=== PATIENT | female | born 1965 | race American Indian/Alaskan Native ===

== ENCOUNTER 2020-11-24 11:27 | Emergency (ER) | payer SELFPAY ==
[2020-11-24 11:50] VITALS: BP 121/71
--- NOTE | 2020-11-24 12:05 | Event Note ---
ED Screening Note Date of service: 11/24/20 Time: 12:03 ED Screening Note: 55-year-old -Chinese female presents to the emergency room for right thumb injury as she was getting into her bed yesterday. Patient reports she took Tylenol yesterday but has not taken anything today. Denies any past medical history reports she currently takes no medications on a daily basis. This initial assessment/diagnostic orders/clinical plan/treatment(s) is/are subject to change based on patients health status, clinical progression and re- assessment by fellow clinical providers in the ED. Further treatment and workup at subsequent clinical providers discretion. Patient/guardian urged not to elope from the ED as their condition may be serious if not clinically assessed and managed. Initial orders include:
--- NOTE | 2020-11-24 12:38 | XRay Report ---
RIGHT THUMB 3 VIEW(S) INDICATION / CLINICAL INFORMATION: Concern for right thumb injury COMPARISON: None available. FINDINGS: BONES / JOINT(S): No acute fracture or subluxation. 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 SOFT TISSUES: Mild soft tissue swelling around the thumb IP joint. ADDITIONAL FINDINGS: None. Signer Name: Lemuel Molina MD Signed: 11/24/2020 12:34 PM Workstation Name: [id number]
--- NOTE | 2020-11-24 13:04 | Emergency Department Report ---
ED Upper Extremity Inj HPI - General Chief Complaint: Extremity Injury, Upper Stated Complaint: RT THUMB INJURY Time Seen by Provider: 11/24/20 12:57 Source: patient Mode of arrival: Ambulatory Limitations: No Limitations - History of Present Illness Initial Comments: 55-year-old -Marshallese female presents to the emergency room for right thumb injury trying to get into bed yesterday. Patient states bending her thumb makes the pain worst. She denies any direct blow denies any falls. States she took Tylenol yesterday. Currently takes no medications on a daily basis MD Complaint: Injury to:: right, finger (thumb) Onset/Timin - Related Data Allergies Allergy/AdvReac Type Severity Reaction Status Date / Time sulfamethoxazole Allergy Rash Verified 11/24/20 11:46 [From Bactrim] trimethoprim [From Bactrim] Allergy Rash Verified 11/24/20 11:46 ED Review of Systems ROS: Stated complaint: RT THUMB INJURY Other details as noted in HPI ED Past Medical Hx - Past Medical History Previous Medical History?: No - Surgical History Past Surgical History?: Yes Hx Cholecystectomy: Yes Additional Surgical History: Salivary gland removed, Umbilical hernia - Social History Smoking Status: Never Smoker Substance Use Type: None ED Physical Exam - General Limitations: No Limitations General appearance: alert, in no apparent distress - Head Head exam: Present: atraumatic, normocephalic - Eye Eye exam: Present: normal appearance - ENT ENT exam: Present: normal exam, normal external ear exam - Neck Neck exam: Present: normal inspection, full ROM - Respiratory Respiratory exam: Present: accessory muscle use - Cardiovascular Cardiovascular Exam: Present: regular rate - Expanded Upper Extremity Exam Right Shoulder Exam: Present: normal inspection, full ROM Upper Arm exam: Present: normal inspection, full ROM Elbow exam: Present: normal inspection, full ROM Forearm Wrist exam: Present: normal inspection, full ROM Hand Wrist exam: Present: full ROM (Decreased secondary to swelling and pain), tenderness (Thumb), swelling (Thumb). Absent: ecchymosis, deformity, dislocation, erythema, amputation, nail avulsion, subungual hematoma Neuro motor exam: Present: wrist extension intact, thumb opposition intact, thumb adduction intact, fingers 2-5 abduction intact Vascular: Present: normal capillary refill - Back Exam Back exam: Present: normal inspection - Neurological Exam Neurological exam: Present: alert, oriented X3, normal gait - Psychiatric Psychiatric exam: Present: normal affect, normal mood - Skin Skin exam: Present: warm, dry, intact, normal color. Absent: rash ED Course Vital Signs 11/24/20 11:47 Temperature 98.5 F Pulse Rate 81 Respiratory 20 Rate Blood Pressure 121/71 O2 Sat by Pulse 100 Oximetry ED Medical Decision Making - Radiology Data Radiology results: report reviewed [facility] [address] [place] [address] XRay Report Signed Patient: KAREN ARANDA MR#: [id number] : 1965 Acct:[id number] Age/Sex: 55 / F ADM Date: 11/24/20 Loc: ED Attending Dr: Ordering Physician: CAMMIE AVILES Date of Service: 11/24/20 Procedure(s): XR finger(s) 2+V RT Accession Number(s): [id number] cc: CAMMIE AVILES Fluoro Time In Minutes: RIGHT THUMB 3 VIEW(S) INDICATION / CLINICAL INFORMATION: Concern for right thumb injury COMPARISON: None available. FINDINGS: BONES / JOINT(S): No acute fracture or subluxation. Moderate degenerative arthrosis of the thumb interphalangeal joint with joint space narrowing and osteophyte formation. SOFT TISSUES: Mild soft tissue swelling around the thumb IP joint. ADDITIONAL FINDINGS: None. Signer Name: Lemuel Molina MD Signed: 11/24/2020 12:34 PM Workstation Name: [id number] Transcribed By: DT Dictated By: Earl Molina MD Electronically Authenticated By: Earl Molina MD Signed Date/Time: 11/24/20 1234 DD/ 1233 TD/TT: - Medical Decision Making 55-year-old -Marshall[place] female presents to the emergency room for right thumb injury trying to get into bed yesterday. Patient states his pain with bending her thumb. She denies any direct blow denies any falls. States she took Tylenol yesterday. Currently takes no medications on a daily basis X-ray is negative for any acute fractures or subluxation. It does show some degenerative joint disease which is arthritis. Critical care attestation.: If time is entered above; I have spent that time in minutes in the direct care of this critically ill patient, excluding procedure time. ED Disposition Clinical Impression: Arthritis Sprain of right thumb Qualifiers: Encounter type: initial encounter Sprain of finger site: unspecified site Qualified Code(s): S63.601A - Unspecified sprain of right thumb, initial encounter Disposition: [facility] SCREENING EXAM-LEFT Is pt being admited?: No Does the pt Need Aspirin: No Condition: Stable Instructions: Thumb Sprain, Finger Sprain (ED) Additional Instructions: X-ray is negative for any acute fractures or subluxation. It does show some degenerative joint disease which is arthritis. Recommend ibuprofen naproxen ice and follow-up with your primary care provider. Please wear splint for comfort. Referrals: PRIMARY CARE, [Primary Care Provider] - 3-5 Days
== END 2020-11-24 13:16 | disposition left against medical advice (07) ==
LOC: ED 11:27
DX: M19.90 Unspecified osteoarthritis, unspecified site (principal); Z53.21 Procedure and treatment not carried out due to patient leaving prior to being seen by health care provider